=== PATIENT | male | born 1930 | race Caucasian/White ===

== ENCOUNTER 2016-09-17 23:11 | Inpatient (IN) | payer MEDICARE, BC ==
--- NOTE | ~2016-09-17 | HP ---
History And Physical [place] [id number] [facility] [place]. [address] NAME: CHETAN BURK : 32 STATUS : REG ER PAT#: [id number] AGE: 86 ADM/REG DATE : 09/17/16 MR#: [id number] REPORT SERV DATE: 09/18/16 DICTATED BY: NICK RAMOS DATE: 09/18/16 REPORT STATUS : Draft TRANSCRIBED BY: MODL DATE: 09/18/16 DATE OF ADMISSION: 09/17/2016 CHIEF COMPLAINT: Elevated blood pressures and wheezing. HISTORY OF PRESENT ILLNESS: This is an 86-year-old gentleman with history of hypertension and CVA presenting with wheezing and elevated blood pressures. The patient apparently started having some wheezes since about a week ago that progressively worsened over time. The patient really did not have any fevers or chills but he did have cough that was nonproductive. Today, the patient's wheezing got so worse that he got quite anxious. Along with that, the patient's blood pressure started running high in the 180s. The family became concerned and brought him to the ER for further evaluation and care. In the ER, the patient was found to be afebrile and hemodynamically stable. The patient was actually able to maintain adequate oxygen saturations on room air. Initial lab evaluation was actually all very benign with normal electrolytes, normal CBC, including normal white blood cell count. The patient's BNP was then found to be elevated at 1511. Chest x-ray, which showed prominent vasculature as well as left lower lobe infiltrates. Internal Medicine consultation was requested for admission of the patient for further evaluation and care. REVIEW OF SYSTEMS: The patient denies any fevers or chills. Also, 14-point review of systems reviewed and negative other than mentioned above. MEDICATIONS: 1. Aspirin 81 mg p.o. daily. 2. Plavix 75 mg p.o. daily. 3. Folic acid 400 mcg p.o. daily. 4. Prevacid 30 mg p.o. daily. 5. Metformin 500 mg p.o. b.i.d. 6. Singulair 10 mg p.o. daily. 7. Hytrin 10 mg p.o. at bedtime. ALLERGIES: NKDA. PAST MEDICAL HISTORY: 1. CVA. 2. Hypertension. 3. Although, the family denies diabetes, the patient is on metformin at home. PAST SURGICAL HISTORY: Bilateral knee replacement. FAMILY HISTORY: Negative. SOCIAL HISTORY: The patient does not smoke, drink alcohol, or use any illicit drugs. The History And Physical [address] [address] NAME: CHETAN BURK : 32 STATUS : REG ER PAT#: [id number] AGE: 86 ADM/REG DATE : 09/17/16 MR#: [id number] REPORT SERV DATE: 09/18/16 DICTATED BY: NICK RAMOS DATE: 09/18/16 REPORT STATUS : Draft TRANSCRIBED BY: DIANE DATE: 09/18/16 patient lives at home with his and the patient's and his daughter is present at bedside here in the ER. PHYSICAL EXAMINATION: VITAL SIGNS: Temperature 98.1, blood pressure 172/102, pulse 84, respiratory rate is 16, and saturating 97% on room air. Constitutional: On physical exam, the patient is alert and oriented x3 with no focal neurologic deficits. GENERAL: The patient is awake, does not appear to be in acute distress, and he is cooperative. NECK: No JVD. No lymphadenopathy. Normal thyroid. CHEST: No midline sternotomy scar and no tenderness to palpation. LUNGS: Clear to auscultation bilaterally with normal respiratory effort on room air. CARDIOVASCULAR: Regular rate and rhythm with no murmurs, rubs, or gallops, and PMI is nondisplaced. ABDOMEN: Soft, nontender, with active bowel sounds and no organomegaly. EXTREMITIES: No edema. Normal distal pulses. No calf tenderness. SKIN: Clean, dry, warm, and intact. LABORATORY DATA: Sodium is 141, potassium 4.2, chloride 103, BUN 19, creatinine 1.16, glucose 118, calcium 8.5, magnesium 2.0. White blood cell count is 6.7, hemoglobin 13.6, platelets 190. INR is 1.1. Troponin is 0.02. BNP is 1511. Urinalysis was negative. Chest x-ray is personally interpreted and it shows bilateral lower lobe infiltrates worse on the right with blunting of the costovertebral angles. It also showed some prominent vasculature. ASSESSMENT: This is an 86-year-old gentleman with history of hypertension and CVA presenting with community-acquired pneumonia with wheezing. 1. Community-acquired pneumonia. 2. Respiratory wheezing. 3. Elevated BNP with some fluid overload. 4. History of cerebrovascular accident. 5. Hypertension. 6. Ywd-rqkohdu-nnrlttotz diabetes type 2. PLAN: My plan is to admit the patient under telemetry monitoring. The patient will be given oxygen support and bronchodilator therapies. The patient will be treated with empiric antibiotics for community-acquired pneumonia as well as some steroids. I will check an echocardiogram and give him a couple doses of Lasix to see if the patient will breathe better. In's and out's will be closely monitored as well as electrolytes and renal function, as the patient is given gentle diuresis. I will also complete an infectious workup with various cultures, procalcitonin level, and urinary antigens for strep and Legionella. Otherwise, for the rest of stable past medical conditions, including hypertension, boz-ldfrkrg-mojtixctl diabetes type 2 et al, I will continue home medications. Standard DVT prophylaxis. The patient is full code at this time. History And Physical [address] [address] NAME: CHETAN BURK : 32 STATUS : REG ER PAT#: [id number] AGE: 86 ADM/REG DATE : 09/17/16 MR#: [id number] REPORT SERV DATE: 09/18/16 DICTATED BY: NICK RAMOS DATE: 09/18/16 REPORT STATUS : Draft TRANSCRIBED BY: DIANE DATE: 09/18/16 Inessa/DIANE Nick Ramos MD / [id number]
--- NOTE | ~2016-09-17 | CN ---
Consultation Report [facility] [address] [place]. [address] NAME: CHETAN BURK : 32 STATUS : ADM IN PAT#: [id number] AGE: 86 ADM/REG DATE : 09/18/16 MR#: [id number] REPORT SERV DATE: 09/20/16 DICTATED BY: IRIS GIRALDO DATE: 09/20/16 REPORT STATUS : Draft TRANSCRIBED BY: MODJerzy DATE: 09/20/16 CARDIOLOGY CONSULT DATE OF CONSULTATION: REFERRING REASON: Heart failure. HISTORY OF PRESENT ILLNESS: This is a pleasant 86-year-old white gentleman with severe underlying dementia and hearing loss who has been admitted to hospitalist Service several days ago with wheezing and general failure to thrive. His blood pressure according to his family members has been elevated up to 180. He denies any chest pain. Information is being obtained from his daughter and his brother who were in the room while the patient is oriented only to person. He reportedly has been walking without any support but over the last couple of months, he has been sedentary or in the bed. He suffered CVA 14 years ago and has underlying diabetes and hypertension but no previously known coronary artery disease. On admission, he had some bilateral lower lungs infiltrates, worse on the right than on the left with some mild interstitial edema, elevated brain natriuretic peptide to 1500 but negative enzymes. He remained in normal sinus rhythm. Echocardiogram was performed yesterday which was interpreted by my colleague, Dr. Coffman which revealed mild LV enlargement with global hypokinesis EF 30% and I personally reviewed the echocardiogram which did reveal also apical akinesis and aortic valve sclerosis. The patient has been diuresing well over the last couple of days. When I approached him about possible coronary arteriogram, he does not comprehend the situation and is convinced that he is at [facility]. He denied any recent chest pain. He is able to lie flat but has some wheezing. Denies any palpitations. The rest of the review of systems negative. PAST MEDICAL HISTORY: 1. Hypertension. 2. History of CVA 14 years ago. 3. Diabetes mellitus. 4. Remote history of knee surgery. 5. Dementia. 6. Hearing loss. ALLERGIES: NO KNOWN DRUG ALLERGIES. SOCIAL HISTORY: The patient has remote history of smoking many years ago. He apparently quit according to his family. He lives with his . Previously walked without any support but he has been mostly sedentary in the bed over the last several months. Denies drinking alcohol or using street drugs. FAMILY HISTORY: Negative for sudden cardiac or premature coronary artery disease in Consultation Report [place] [id number] [place]. [address] NAME: CHETAN BURK : 32 STATUS : ADM IN PAT#: [id number] AGE: 86 ADM/REG DATE : 09/18/16 MR#: [id number] REPORT SERV DATE: 09/20/16 DICTATED BY: IRIS GIRALDO DATE: 09/20/16 REPORT STATUS : Draft TRANSCRIBED BY: DIANE DATE: 09/20/16 the family. HOME MEDICATIONS: Aspirin 81 mg once a day; Plavix 75 mg; folic acid; and Hytrin. In the hospital, he was getting IV Lasix, fluid restriction, and 2.5 mg of lisinopril and was started on metoprolol 25 mg twice a day and Protonix and Seroquel. PHYSICAL EXAMINATION: GENERAL: An elderly gentleman oriented x1, in no acute distress and some upper respiratory wheeze. VITAL SIGNS: Blood pressure 175/93, heart rate 59 and regular. HEENT: Pupils reactive to light and accommodation. Moist mucous membranes. NECK: No JVD. Normal carotid upstroke. No carotid bruits. LUNGS: Decreased breath sounds bibasilarly, but no crackles. Occasional wheezing. COR: Normal S1, S2. No S3 or S4. No significant rub or murmurs. ABDOMEN: Distended. Nontender. EXTREMITIES: Lower extremity, trace edema around the ankle with decreased pedal pulses bilaterally. SKIN: Warm with normal turgor. MUSCULOSKELETAL: No kyphosis. NEUROLOGIC/PSYCHIATRIC: Alert and oriented. Nonfocal. DATA: Remarkable for electrolyte within normal limits. Brain natriuretic peptide up to 1511. Glucose 150. Chest x-ray as above. Troponin x2 negative. Electrocardiogram normal sinus rhythm, 92 beats per minute, signs of LVH, poor R-wave progression anterior leads, and nonspecific ST-segment changes. An echocardiogram as above. ASSESSMENT AND PLAN: 1. Heart failure exacerbation. 2. Cardiomyopathy of unclear etiology. 3. Remote history of CVA. 4. Dementia. 5. Possible pneumonia. The patient has acute on chronic heart failure exacerbation. Based on the appearance of the echocardiogram, there has been a longstanding heart failure which was probably unrecognized previously. He will need to be on strict fluid restriction and continue to diurese. We will switch to carvedilol from metoprolol. I tried to talk to his over the phone but she is undecided about coronary arteriogram. We will continue to diurese him for the next couple of days and reassess. We will treat him medically for now and consider coronary arteriogram later. ALLEN/DIANE Iris James Consultation Report [address] [place]. [address] NAME: CHETAN BURK : 32 STATUS : ADM IN PAT#: [id number] AGE: 86 ADM/REG DATE : 09/18/16 MR#: [id number] REPORT SERV DATE: 09/20/16 DICTATED BY: IRIS GIRALDO DATE: 09/20/16 REPORT STATUS : Draft TRANSCRIBED BY: DIANE DATE: 09/20/16 Rosy Giraldo / [id number] CC: Rosy Taveras
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
--- NOTE | ~2016-09-17 | EEG ---
Electroencephalogram [facility] [address] [facility] [place]. [address] NAME: CHETAN BURK : 32 STATUS : ADM IN PAT#: [id number] AGE: 86 ADM/REG DATE : 09/18/16 MR#: [id number] REPORT SERV DATE: 09/22/16 DICTATED BY: DATE: REPORT STATUS : Draft TRANSCRIBED BY: MODL DATE: 09/22/16 NEUROLOGY EEG REPORT CLINICAL INDICATION: Encephalopathy. DISCUSSION: This EEG was performed using 10/20 electrode placement system. During the EEG study, symmetric background activity was noted with predominant occipital rhythm of roughly 7 to 8 hertz. Photic stimulation was performed with appropriate driving response. Hyperventilation was not performed secondary to the patient's underlying medical condition and mental status. During the EEG study, the patient achieved drowsy state. No focal abnormalities, seizure activity, or seizure discharge was otherwise noted. INTERPRETATION: This EEG study obtained during awake and drowsy state may be considered within normal limits. No focal abnormalities, seizure activity, or seizure discharge was seen. Clinical correlation is recommended. [facility]/MODJerzy Kevin Nicole MD / [id number] CC: Rosy Taveras
--- NOTE | ~2016-09-17 | CN ---
Consultation Report [facility] [address] [place]. [address] NAME: CHETAN RYAN : 34 STATUS : ADM IN PAT#: [id number] AGE: 86 ADM/REG DATE : 09/18/16 MR#: [id number] REPORT SERV DATE: 09/23/16 DICTATED BY: JEFFREY DUNCAN DATE: 09/23/16 REPORT STATUS : Draft TRANSCRIBED BY: MODL DATE: 09/23/16 NEPHROLOGY CONSULT DATE OF CONSULTATION: 09/23/2016 REASON FOR CONSULT: Acute kidney injury. HISTORY OF PRESENT ILLNESS: Mr. Ryan is an 86-year-old, white male who likely has some degree of chronic kidney disease with a creatinine of 1.2 on presentation, 09/17/2016. He has had extensive workup here during this admission. CT scan originally showed atrophy without acute changes, but an MRI confirmed a right posterior temporal lobe stroke. He was found to have a left internal carotid artery stenosis during the workup and Vascular consult is pending. He has been seen by Cardiology and echo showed an EF of 30% with a PASP of 38 mmHg. He was placed on Lasix 40 mg a day on 09/21/2016 and Prinivil 5 mg a day on 09/22/2016. Creatinine, which was 1.4 on 09/21/2016 was 1.4 yesterday, but is 1.7 today. Unfortunately, he is unable to give any meaningful history and the family is not in the room at the time of my interview. PAST MEDICAL HISTORY: 1. CKD with creatinine 1.2 on admission. 2. Hypertension. 3. NIDDM, on metformin. 4. History of previous stroke. 5. History of dementia. MEDICATIONS: Aspirin, Lipitor, Coreg, Plavix, vitamin B12, Colace, Aricept, folic acid, Lasix 40 mg daily, subcu heparin, Prinivil 5 mg daily, Singulair, multivitamin, Protonix, MiraLAX, Seroquel, Hytrin, and thiamin. FAMILY HISTORY: Cannot be obtained due to the patient's current condition with dementia. SOCIAL HISTORY: Cannot be obtained due to the patient's current condition with dementia. REVIEW OF SYSTEMS: Cannot be obtained due to the patient's current condition with dementia. PHYSICAL EXAMINATION: VITAL SIGNS: Temperature 97, pulse 81, respirations 16, blood pressure 100/59, 93% sat on room air. 740 mL of intake with 550 mL of urine output recorded. GENERALLY: He is an elderly, chronically ill-appearing white male, who is in no distress, lying flat in his hospital bed. Awakens easily. He is unable to give any details regarding his history. He is confused and not oriented. HEENT: Sclerae without icterus. Conjunctivae, not injected. Oropharynx is clear. Mucous membranes are dry. No JVD. He has a bruise to the right orbital area, but is normocephalic Consultation Report [facility] [address] [place]. [address] NAME: CHETAN RYAN : 34 STATUS : ADM IN [facility]#: [id number] AGE: 86 ADM/REG DATE : 09/18/16 MR#: [id number] REPORT SERV DATE: 09/23/16 DICTATED BY: JEFFREY DUNCAN DATE: 09/23/16 REPORT STATUS : Draft TRANSCRIBED BY: MODL DATE: 09/23/16 and atraumatic. Pupils are equal. Gaze is conjugate. LUNGS: He has bilateral rhonchi without dyspnea or tachypnea on room air. HEART: Regular rate and rhythm. 2/6 murmur. No rub. ABDOMEN: Thin, soft, nontender, nondistended. Bowel sounds present throughout. No rebound guarding or peritoneal signs. EXTREMITIES: Show no edema. SKIN: Exam shows no rash. He has no Espinoza catheter. : Deferred. LABORATORY DATA: Sodium 140, potassium 4.2, bicarb 28, BUN 37, creatinine 1.7, GFR 36 mL/minute, calcium 9, magnesium 2.7. A1c 6.7%, white count 7.7, hemoglobin 15.3, platelets 207,000. ASSESSMENT/PLAN: Mr. Ryan has chronic kidney disease with baseline creatinine 1.2 on admission, now with nonoliguric acute kidney injury, dementia, [id number] diabetes mellitus, stroke, and hypotension. More than likely, his acute kidney injury is related to renal hypoperfusion in combination from relative hypotension and medication effect. We will stop the MAVERICK and Lasix as he appears euvolemic on exam. Check bladder scan. Gently hydrate with normal saline x5 100 mL keeping a close watch on his volume status with his depressed EF. Continue supportive care. Watch labs. Update family when they are available. Should renal function worsen, I would not consider him to be a dialysis candidate with his multiple comorbid illnesses. Please avoid contrast if at all possible. We will follow closely with you. Appreciate consult. ERICKSON/MODL Jeffrey Duncan M.D. / [id number] CC: Rosy Taveras Ricky G
--- NOTE | ~2016-09-17 | DS ---
Discharge Summary [facility] [address] [place]. [address] NAME: CHETAN BURK : 34 STATUS : DIS IN PAT#: [id number] AGE: 86 ADM/REG DATE : 09/18/16 MR#: [id number] REPORT SERV DATE: 09/27/16 DICTATED BY: CODI DOMÍNGUEZ DATE: 09/26/16 REPORT STATUS : Draft TRANSCRIBED BY: MODL DATE: 09/26/16 ADMISSION DATE: 09/18/2016 DISCHARGE DATE: 09/26/2016 DIAGNOSES OF DISCHARGE: 1. 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 2. Delirium with dementia, resolved with underlying dementia, likely vascular. 3. Acute right subcortical cerebrovascular accident. 4. Hyperlipidemia. 5. Dysphagia. 6. Acute on chronic kidney disease with stable creatinine at discharge. 7. Hypertension. 8. Vitamin B12 deficiency. 9. Weakness, debility with recurrent falls. CONSULTANTS ON THE CASE: Dr. Nicole, Neurology; Dr. Garcia, Renal; Dr. Lott, Cardiology; as well as Dr. Byron Barnes, Vascular. PROCEDURES DONE DURING THIS HOSPITALIZATION: None. TESTS DONE DURING THIS HOSPITALIZATION: Include: 1. 2D echo that has been performed on 09/19/2016 showing decreased ejection fraction around 30% with dilated LV and global hypocontractility. 2. The patient underwent CT of the brain without contrast performed on 09/20/2016 showing no acute abnormalities. There were moderate cortical volume loss and findings compatible with advanced chronic deep white matter ischemic changes and also an old area of infarction involving the high medial left frontal lobe. There was a questionable 5-mm peripheral calcified structure along the anteromedial aspect of the left temporal lobe that required farther delineation with an MRI. The patient underwent an MRI of the brain and MRA of the head. 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 HOSPITAL COURSE: The patient underwent also a carotid ultrasound that has shown that the patient has category 3 disease involving the left internal carotid artery and 1 involving the right internal carotid artery and the vertebral arteries were patent. Chest x-ray, portable, on admission, 09/17/2016, showed pulmonary venous congestion and edema with pleural effusion. Followup chest x-ray significantly showed almost complete clearing of the failure with resolved pleural effusion. Swallow study showed delayed and weak pharyngeal contraction leading to some aspiration of the delayed cough. The modified swallow study report for the diet consistency recommendation has been done by speech pathologist. This is an 86 years old gentleman, who has been admitted by Dr. Nick Ramos on 09/18/2016 with Discharge Summary [facility] [address] [place]. [address] NAME: CHETAN BURK : 32 STATUS : DIS IN PAT#: [id number] AGE: 86 ADM/REG DATE : 09/18/16 MR#: [id number] REPORT SERV DATE: 09/27/16 DICTATED BY: CODI DOMÍNGUEZ DATE: 09/26/16 REPORT STATUS : Draft TRANSCRIBED BY: DIANE DATE: 09/26/16 elevated blood pressure and wheezing. The patient has been having a history of hypertension, prior history of stroke, diabetes, as well as some prior history of dementia, who has been brought by the family on 09/18/2016 with increasing shortness of breath, wheezing, and hypertension. Initially, the patient was thought to have had pneumonia. However, upon further evaluation, he has been diagnosed with new onset of congestive heart failure. It is important to note that the patient had interstitial edema, ejection fraction, which showed global hypokinesis about 30%. The patient has been also significantly agitated and delirious on admission. He does have a history of dementia according to the family and prior history of stroke, but he has not been that delirious and agitated according to them prior to current admission. The patient was noted to be acutely confused, agitated, and combative. CT of the brain did not show any acute events, but an MRI of the brain did show small acute right subcortical CVA. It is important to note that he has been seen in consult by Dr. Nicole from Neurology Service. The patient did have full neurologic workup including EEG, which did not show any seizure activity. He has been started on Aricept as well as p.r.n. Seroquel and his delirium improved significantly and resolved, although his dementia likely vascular in origin has been fairly severe. The patient, as I said, has been seen in consult by Dr. Lott with his new-onset CHF, most likely nonischemic cardiomyopathy. Dr. Lott had a long discussion with the patient's due to the fact that the patient has had significant delirium as well as dementia and after discussion with the patient's and lack of complaint of chest pain or increasing shortness of breath and also improvement and resolution of his CHF, the patient's library sales consultant Dr. Lott concluded that the patient is not a candidate for cardiac catheterization and medical management has been discussed with the with no plans for cardiac cath. The patient has been diuresed. He developed some mild acute kidney injury, for which the patient has been seen in consult by Dr. Garcia from the Renal Service, likely his acute kidney injury has been related to aggressive diuretics as well as some MAVERICK. His MAVERICK as well as his Lasix have been discontinued and he has provided gentle hydration with stabilization of his kidney function. As a part of the neurologic workup, the patient underwent a carotid ultrasound, which did show grade 3 carotid stenoses on the left. He has been evaluated by Dr. Byron Barnes from Vascular Service, who did not consider the patient to be a good candidate for cardiac endarterectomy at the current time and plans to follow up with the patient in the office as an outpatient. On 09/24/2016, the patient has been ready to be discharged to inpatient rehab. His encephalopathy resolved and his dementia remained stable on Aricept and p.r.n. Seroquel and for his CVA, we will continue him on statin, aspirin, and Plavix. Regarding his cardiomyopathy, the patient would require only p.r.n. diuretics as needed, currently is stable and compensated, and he would not tolerate MAVERICK at the current time due to his renal failure, so his MAVERICK has been discontinued. Again, on 09/24/2016, the patient has been ready for discharge to inpatient rehab at [facility] facility. MEDICATIONS AT DISCHARGE: Include aspirin 81 p.o. daily, Lipitor 80 mg at bedtime, Coreg 3.125 p.o. b.i.d., Plavix 75 p.o. daily, vitamin B12 at 1000 p.o. daily, Colace 100 p.o. b.i.d., Aricept 5 mg at bedtime, folic acid 400 mcg p.o. daily, NovoLog sliding scale insulin, Singulair 10 mg p.o. daily, multivitamin one tablet p.o. daily, Protonix 40 mg p.o. daily, MiraLAX one packet p.o. daily, Hytrin 10 mg at bedtime, thiamine 100 p.o. daily, Tylenol p.r.n., Seroquel p.r.n., nebulizers p.r.n. Discharge Summary [address] [address] NAME: CHETAN BURK : 34 STATUS : DIS IN PAT#: [id number] AGE: 86 ADM/REG DATE : 09/18/16 MR#: [id number] REPORT SERV DATE: 09/27/16 DICTATED BY: CODI DOMÍNGUEZ DATE: 09/26/16 REPORT STATUS : Draft TRANSCRIBED BY: DIANE DATE: 09/26/16 FOLLOWUP: The patient has been advised to follow up with his primary care provider, Ernesto Jimenez, in one week after discharge; Cardiology followup with Dr. Lott from in three to four weeks after discharge. We will arrange outpatient followup with Dr. Garcia, Nephrology, in three to four weeks after discharge. Neurology follow up with [facility] for his history of dementia in four to six weeks after discharge and followup appointment with Dr. Barnes from Vascular Service in six weeks after discharge. That has been discussed extensively with the patient's family. All the questions have been answered in full. I have spent more than 30 minutes at discharging the patient, Connor Erich Altamirano; medication reconciliation; discharge summary; discharge instructions; written prescriptions as well. CLAUDIA/DIANE Codi Domínguez M.D. / [id number] CC: Rosy Taveras
[2016-09-17 23:20] LABS: BASOPHILS 0.3 %; BASOPHILS ABSOLUTE 0.02 10/3/uL (0.0-0.16); EOSINOPHILS 1.8 %; EOSINOPHILS ABSOLUTE 0.12 10/3/uL (0.0-0.53); ER CBC TAT 0 Hrs 07 Mins; HEMATOCRIT 39.7 % (40.0-51.0); HEMOGLOBIN 13.6 g/dL (13.6-17.8); IMMATURE GRANULOCYTES 0.5 %; IMMATURE GRANULOCYTES ABSOLUTE 0.03 10/3/uL (0.0-0.11); LYMPHOCYTES 11.9 %; LYMPHOCYTES ABSOLUTE 0.79 10/3/uL (0.67-4.30); MANUAL DIFF NO %; MEAN CORPUS HGB CONC 34.3 g/dL (32.0-36.0); MEAN CORPUSCULAR HEMOGLOB 31.9 pg (26.0-34.0); MEAN CORPUSCULAR VOLUME 93.2 fL (80-100); MEAN PLATELET VOLUME 11.7 fL (9.2-13.0); MONOCYTES 7.7 %; MONOCYTES ABSOLUTE 0.51 10/3/uL (0.21-1.20); NEUTROPHILS 77.8 %; NEUTROPHILS ABSOLUTE 5.19 10/3/uL (2.02-8.40); PLATELET COUNT 190 10/3/uL (150-400); RBC DISTRIBUTION WIDTH 13.4 % (12.0-16.0); RED CELL COUNT 4.26 10/6/uL (4.7-6.1); WHITE BLOOD CELLS 6.7 10/3/uL (4.5-10.5)
[2016-09-17 23:27] LABS: INTERNATIONAL NORMAL RATI 1.1 UNITS (-); PARTIAL THROMBO TIME 31.6 SEC (22.5-37.2); PROTIME (NOT ORD) 14.1 SEC (12.0-14.5)
[2016-09-17 23:35] LABS: BUN (BLOOD UREA NITROGEN) 19 MG/DL (6-23); CALCIUM, SERUM 8.5 MG/DL (8.5-10.4); CHEST PAIN PROFILE TAT 0 Hrs 22 Mins; CHLORIDE, SERUM 103 MMOL/L (96-112); CO2 (CARBON DIOXIDE) 28 MMOL/L (24-34); CREATININE 1.16 MG/DL (0.70-1.30); GFR AFRICAN AMERICAN 67 ML/MIN (>=60); GFR NON AFRICAN AMERICAN 58 ML/MIN (>=60); GLUCOSE, SERUM 118 MG/DL (60-99); POTASSIUM, SERUM 4.2 MMOL/L (3.5-5.3); SODIUM, SERUM 141 MMOL/L (135-148); TROPONIN I 0.02 NG/ML (<0.05)
[2016-09-18 01:05] LABS: ASCORBIC ACID (UR NOT ORDER) NEG (NEG); BILIRUBIN, URINE NEGATIVE (NEG); KETONE, URINE NEGATIVE (NEG); LEUKOCYTE ESTERASE(NOT OR NEG (NEG); NITRITE (URINE) NEG (NEG); WBC (NOT ORDERED) (RFLEX) < 1 (0-5)
[2016-09-18] MEDS ORDERED: SINGULAIR1 PO (01:13)
[2016-09-18] MEDS ORDERED: ASAB PO (01:14)
[2016-09-18] MEDS ORDERED: HYTRIN10 MG PO (01:14)
[2016-09-18] MEDS ORDERED: GLUCPH PO (01:15)
[2016-09-18] MEDS ORDERED: PREV30 PO (01:16)
[2016-09-18] MEDS ORDERED: FOLIC ACID400 MC1 PO (01:16)
[2016-09-18] MEDS ORDERED: PLAVIX PO (01:16)
[2016-09-18 03:31] LABS: PROCALCITONIN <0.05 ng/mL (<0.5)
[2016-09-18 09:57] LABS: TROPONIN I <0.02 NG/ML (<0.05)
[2016-09-18 10:18] LABS: PROCALCITONIN <0.05 ng/mL (<0.5)
[2016-09-18 15:00] LABS: A/G RATIO 0.9 (0.7-1.9); ALBUMIN 3.7 G/DL (3.5-5.0); ALKALINE PHOSPHATASE 112 U/L (45-117); BUN (BLOOD UREA NITROGEN) 19 MG/DL (6-23); CALCIUM, SERUM 8.7 MG/DL (8.5-10.4); CHLORIDE, SERUM 102 MMOL/L (96-112); CO2 (CARBON DIOXIDE) 24 MMOL/L (24-34); CREATININE 1.36 MG/DL (0.70-1.30); GFR AFRICAN AMERICAN 55 ML/MIN (>=60); GFR NON AFRICAN AMERICAN 47 ML/MIN (>=60); GLOBULIN 4.2 G/DL (2.5-4.1); POTASSIUM, SERUM 4.1 MMOL/L (3.5-5.3); SGOT(AST) 17 U/L (5-40); SGPT(ALT) 19 U/L (5-65); SODIUM, SERUM 138 MMOL/L (135-148); TOTAL BILIRUBIN 0.7 MG/DL (0-1.2); TOTAL PROTEIN 7.9 G/DL (6.0-8.5); TROPONIN I <0.02 NG/ML (<0.05)
[2016-09-18 15:02] LABS: GLUCOSE, SERUM 199 MG/DL (60-99)
[2016-09-19 06:02] LABS: BASOPHILS 0 %; EOSINOPHILS 0 %; HEMATOCRIT 43.1 % (40.0-51.0); HEMOGLOBIN 14.9 g/dL (13.6-17.8); IMMATURE GRANULOCYTES 0.2 %; IMMATURE GRANULOCYTES ABSOLUTE 0.02 10/3/uL (0.0-0.11); LYMPHOCYTES 4.4 %; LYMPHOCYTES ABSOLUTE 0.43 10/3/uL (0.67-4.30); MEAN CORPUS HGB CONC 34.6 g/dL (32.0-36.0); MEAN CORPUSCULAR HEMOGLOB 31.5 pg (26.0-34.0); MEAN CORPUSCULAR VOLUME 91.1 fL (80-100); MEAN PLATELET VOLUME 12.2 fL (9.2-13.0); MONOCYTES ABSOLUTE 0.69 10/3/uL (0.21-1.20); NEUTROPHILS 88.4 %; NEUTROPHILS ABSOLUTE 8.71 10/3/uL (2.02-8.40); PLATELET COUNT 210 10/3/uL (150-400); RBC DISTRIBUTION WIDTH 13.2 % (12.0-16.0); RED CELL COUNT 4.73 10/6/uL (4.7-6.1)
[2016-09-19 06:04] LABS: MANUAL DIFF NO %; WHITE BLOOD CELLS 9.9 10/3/uL (4.5-10.5)
[2016-09-19 06:15] LABS: CALCIUM, SERUM 9.1 MG/DL (8.5-10.4); CHLORIDE, SERUM 99 MMOL/L (96-112); CO2 (CARBON DIOXIDE) 24 MMOL/L (24-34); CREATININE 1.49 MG/DL (0.70-1.30); GFR AFRICAN AMERICAN 49 ML/MIN (>=60); GFR NON AFRICAN AMERICAN 42 ML/MIN (>=60); POTASSIUM, SERUM 3.9 MMOL/L (3.5-5.3); SODIUM, SERUM 137 MMOL/L (135-148)
[2016-09-19 06:17] LABS: BUN (BLOOD UREA NITROGEN) 28 MG/DL (6-23); GLUCOSE, SERUM 150 MG/DL (60-99)
[2016-09-20 05:34] LABS: CALCIUM, SERUM 8.7 MG/DL (8.5-10.4); CHLORIDE, SERUM 103 MMOL/L (96-112); CO2 (CARBON DIOXIDE) 27 MMOL/L (24-34); CREATININE 1.38 MG/DL (0.70-1.30); GFR AFRICAN AMERICAN 54 ML/MIN (>=60); GFR NON AFRICAN AMERICAN 47 ML/MIN (>=60); POTASSIUM, SERUM 3.8 MMOL/L (3.5-5.3); SODIUM, SERUM 141 MMOL/L (135-148)
[2016-09-20 05:35] LABS: BUN (BLOOD UREA NITROGEN) 38 MG/DL (6-23); GLUCOSE, SERUM 100 MG/DL (60-99)
[2016-09-20 12:17] LABS: FOLATE 26.9 NG/ML (>5.2)
[2016-09-20 20:39] LABS: ASCORBIC ACID (UR NOT ORDER) NEG (NEG); BILIRUBIN, URINE NEGATIVE (NEG); KETONE, URINE NEGATIVE (NEG); LEUKOCYTE ESTERASE(NOT OR NEG (NEG); WBC (NOT ORDERED) (RFLEX) < 1 (0-5)
[2016-09-21 04:54] LABS: HEMOGLOBIN 14.8 g/dL (13.6-17.8); MEAN CORPUS HGB CONC 33.6 g/dL (32.0-36.0); MEAN CORPUSCULAR HEMOGLOB 30.6 pg (26.0-34.0); MEAN CORPUSCULAR VOLUME 90.9 fL (80-100); MEAN PLATELET VOLUME 13.2 fL (9.2-13.0); PLATELET COUNT 147 10/3/uL (150-400); RBC DISTRIBUTION WIDTH 13.5 % (12.0-16.0); RED CELL COUNT 4.84 10/6/uL (4.7-6.1); WHITE BLOOD CELLS 7.2 10/3/uL (4.5-10.5)
[2016-09-21 04:56] LABS: MANUAL DIFF YES %
[2016-09-21 05:07] LABS: BUN (BLOOD UREA NITROGEN) 39 MG/DL (6-23); CALCIUM, SERUM 8.5 MG/DL (8.5-10.4); CHLORIDE, SERUM 100 MMOL/L (96-112); CO2 (CARBON DIOXIDE) 23 MMOL/L (24-34); CREATININE 1.41 MG/DL (0.70-1.30); FREE T4 1.29 NG/DL (0.76-1.46); GFR AFRICAN AMERICAN 53 ML/MIN (>=60); GFR NON AFRICAN AMERICAN 45 ML/MIN (>=60); GLUCOSE, SERUM 96 MG/DL (60-99); POTASSIUM, SERUM 4.4 MMOL/L (3.5-5.3); SODIUM, SERUM 138 MMOL/L (135-148)
[2016-09-21 05:19] LABS: B NATRIURETIC PEPTIDE (BNP) 705.9 PG/ML (< 100.0)
[2016-09-21 05:31] LABS: BAND NEUTROPHILS 1 %; BASOPHILS 3 %; BASOPHILS ABSOLUTE (CALC) 0.22 10/3/uL (0.0-0.16); LYMPHOCYTES 16 %; LYMPHOCYTES ABSOLUTE (CALC) 1.15 10/3/uL (0.67-4.30); MONOCYTES 4 %; MONOCYTES ABSOLUTE (CALC) 0.29 10/3/uL (0.21-1.20); NEUTROPHILS ABSOLUTE (CALC) 5.54 10/3/uL (2.02-8.40); PLATELET ESTIMATE ADQ (ADEQUATE); RBC MORPHOLOGY NORM (NORMAL); SEGMENTED NEUTROPHIL (0) 76 %; TOTAL NUCLEATED CELLS 100
[2016-09-22 05:12] LABS: BASOPHILS 0.6 %; BASOPHILS ABSOLUTE 0.04 10/3/uL (0.0-0.16); EOSINOPHILS 5.3 %; EOSINOPHILS ABSOLUTE 0.37 10/3/uL (0.0-0.53); HEMATOCRIT 45.3 % (40.0-51.0); IMMATURE GRANULOCYTES 0.3 %; IMMATURE GRANULOCYTES ABSOLUTE 0.02 10/3/uL (0.0-0.11); LYMPHOCYTES 18.5 %; MEAN CORPUSCULAR HEMOGLOB 32.2 pg (26.0-34.0); MEAN CORPUSCULAR VOLUME 91.1 fL (80-100); MEAN PLATELET VOLUME 11.9 fL (9.2-13.0); MONOCYTES 8.1 %; MONOCYTES ABSOLUTE 0.57 10/3/uL (0.21-1.20); NEUTROPHILS 67.2 %; NEUTROPHILS ABSOLUTE 4.74 10/3/uL (2.02-8.40); RBC DISTRIBUTION WIDTH 13.2 % (12.0-16.0); RED CELL COUNT 4.97 10/6/uL (4.7-6.1)
[2016-09-22 05:13] LABS: MANUAL DIFF NO %; MEAN CORPUS HGB CONC 35.3 g/dL (32.0-36.0); PLATELET COUNT 204 10/3/uL (150-400)
[2016-09-22 05:29] LABS: BUN (BLOOD UREA NITROGEN) 37 MG/DL (6-23); C-REACTIVE PROTEIN 9.5 MG/L (<8.0); CALCIUM, SERUM 8.5 MG/DL (8.5-10.4); CHLORIDE, SERUM 101 MMOL/L (96-112); CO2 (CARBON DIOXIDE) 25 MMOL/L (24-34); CREATININE 1.37 MG/DL (0.70-1.30); GFR AFRICAN AMERICAN 55 ML/MIN (>=60); GFR NON AFRICAN AMERICAN 47 ML/MIN (>=60); GLUCOSE, SERUM 113 MG/DL (60-99); POTASSIUM, SERUM 4.1 MMOL/L (3.5-5.3); SODIUM, SERUM 137 MMOL/L (135-148)
[2016-09-22 06:19] LABS: SED RATE 8 MM/HR (0-15)
[2016-09-23 07:06] LABS: BASOPHILS 0.3 %; BASOPHILS ABSOLUTE 0.02 10/3/uL (0.0-0.16); EOSINOPHILS 4.4 %; EOSINOPHILS ABSOLUTE 0.34 10/3/uL (0.0-0.53); HEMATOCRIT 44.8 % (40.0-51.0); HEMOGLOBIN 15.3 g/dL (13.6-17.8); IMMATURE GRANULOCYTES 0.1 %; IMMATURE GRANULOCYTES ABSOLUTE 0.01 10/3/uL (0.0-0.11); LYMPHOCYTES 14.1 %; LYMPHOCYTES ABSOLUTE 1.09 10/3/uL (0.67-4.30); MEAN CORPUS HGB CONC 34.2 g/dL (32.0-36.0); MEAN CORPUSCULAR HEMOGLOB 31.2 pg (26.0-34.0); MEAN CORPUSCULAR VOLUME 91.2 fL (80-100); MEAN PLATELET VOLUME 12.1 fL (9.2-13.0); MONOCYTES 8.9 %; MONOCYTES ABSOLUTE 0.69 10/3/uL (0.21-1.20); NEUTROPHILS 72.2 %; NEUTROPHILS ABSOLUTE 5.58 10/3/uL (2.02-8.40); PLATELET COUNT 207 10/3/uL (150-400); RBC DISTRIBUTION WIDTH 13.1 % (12.0-16.0); RED CELL COUNT 4.91 10/6/uL (4.7-6.1); WHITE BLOOD CELLS 7.7 10/3/uL (4.5-10.5)
[2016-09-23 07:11] LABS: MANUAL DIFF NO %
[2016-09-23 07:19] LABS: BUN (BLOOD UREA NITROGEN) 37 MG/DL (6-23); CHLORIDE, SERUM 101 MMOL/L (96-112); CHOL/HDL RATIO(NOT ORDER) 3.3 (0-5); CHOLESTEROL 145 MG/DL (< 200); CO2 (CARBON DIOXIDE) 28 MMOL/L (24-34); CREATININE 1.71 MG/DL (0.70-1.30); GFR AFRICAN AMERICAN 42 ML/MIN (>=60); GFR NON AFRICAN AMERICAN 36 ML/MIN (>=60); GLUCOSE, SERUM 119 MG/DL (60-99); HDL CHOLESTEROL 44 MG/DL (> 39); LDL CHOLESTEROL 71 MG/DL (< 130); NON-HDL CHOLESTEROL 101 MG/DL (< 160); POTASSIUM, SERUM 4.2 MMOL/L (3.5-5.3); SODIUM, SERUM 140 MMOL/L (135-148); TRIGLYCERIDE 152 MG/DL (< 150)
[2016-09-24 07:43] LABS: BASOPHILS 0.4 %; BASOPHILS ABSOLUTE 0.03 10/3/uL (0.0-0.16); EOSINOPHILS 5.7 %; EOSINOPHILS ABSOLUTE 0.43 10/3/uL (0.0-0.53); HEMATOCRIT 46.1 % (40.0-51.0); HEMOGLOBIN 16.1 g/dL (13.6-17.8); IMMATURE GRANULOCYTES 0.1 %; IMMATURE GRANULOCYTES ABSOLUTE 0.01 10/3/uL (0.0-0.11); LYMPHOCYTES 15.8 %; LYMPHOCYTES ABSOLUTE 1.19 10/3/uL (0.67-4.30); MEAN CORPUS HGB CONC 34.9 g/dL (32.0-36.0); MEAN CORPUSCULAR HEMOGLOB 31.4 pg (26.0-34.0); MEAN PLATELET VOLUME 12.1 fL (9.2-13.0); MONOCYTES 8.8 %; MONOCYTES ABSOLUTE 0.66 10/3/uL (0.21-1.20); NEUTROPHILS 69.2 %; NEUTROPHILS ABSOLUTE 5.21 10/3/uL (2.02-8.40); PLATELET COUNT 199 10/3/uL (150-400); RBC DISTRIBUTION WIDTH 13.2 % (12.0-16.0); RED CELL COUNT 5.12 10/6/uL (4.7-6.1); WHITE BLOOD CELLS 7.5 10/3/uL (4.5-10.5)
[2016-09-24 07:44] LABS: MANUAL DIFF NO %
[2016-09-24 07:58] LABS: ALBUMIN 3.5 G/DL (3.5-5.0); CALCIUM, SERUM 8.6 MG/DL (8.5-10.4); CHLORIDE, SERUM 102 MMOL/L (96-112); CO2 (CARBON DIOXIDE) 24 MMOL/L (24-34); CREATININE 1.67 MG/DL (0.70-1.30); GFR AFRICAN AMERICAN 43 ML/MIN (>=60); GFR NON AFRICAN AMERICAN 37 ML/MIN (>=60); GLUCOSE, SERUM 103 MG/DL (60-99); PHOSPHORUS, SERUM 2.9 MG/DL (2.5-4.5); POTASSIUM, SERUM 4.4 MMOL/L (3.5-5.3); SODIUM, SERUM 138 MMOL/L (135-148)
[2016-09-24 07:59] LABS: BUN (BLOOD UREA NITROGEN) 44 MG/DL (6-23)
[2016-09-25 07:45] LABS: BASOPHILS 0.3 %; BASOPHILS ABSOLUTE 0.02 10/3/uL (0.0-0.16); EOSINOPHILS 4.8 %; EOSINOPHILS ABSOLUTE 0.37 10/3/uL (0.0-0.53); HEMOGLOBIN 14.8 g/dL (13.6-17.8); IMMATURE GRANULOCYTES 0.1 %; IMMATURE GRANULOCYTES ABSOLUTE 0.01 10/3/uL (0.0-0.11); LYMPHOCYTES 13.4 %; LYMPHOCYTES ABSOLUTE 1.04 10/3/uL (0.67-4.30); MEAN CORPUS HGB CONC 34.4 g/dL (32.0-36.0); MEAN CORPUSCULAR HEMOGLOB 30.9 pg (26.0-34.0); MEAN CORPUSCULAR VOLUME 89.8 fL (80-100); MEAN PLATELET VOLUME 12.1 fL (9.2-13.0); MONOCYTES 11.2 %; MONOCYTES ABSOLUTE 0.87 10/3/uL (0.21-1.20); NEUTROPHILS 70.2 %; NEUTROPHILS ABSOLUTE 5.46 10/3/uL (2.02-8.40); PLATELET COUNT 207 10/3/uL (150-400); RBC DISTRIBUTION WIDTH 13.4 % (12.0-16.0); RED CELL COUNT 4.79 10/6/uL (4.7-6.1); WHITE BLOOD CELLS 7.8 10/3/uL (4.5-10.5)
[2016-09-25 07:46] LABS: MANUAL DIFF NO %
[2016-09-25 07:54] LABS: CALCIUM, SERUM 8.4 MG/DL (8.5-10.4); CHLORIDE, SERUM 104 MMOL/L (96-112); CO2 (CARBON DIOXIDE) 22 MMOL/L (24-34); CREATININE 1.48 MG/DL (0.70-1.30); GFR AFRICAN AMERICAN 50 ML/MIN (>=60); GFR NON AFRICAN AMERICAN 43 ML/MIN (>=60); GLUCOSE, SERUM 111 MG/DL (60-99); POTASSIUM, SERUM 4.7 MMOL/L (3.5-5.3); SODIUM, SERUM 136 MMOL/L (135-148)
[2016-09-25 07:55] LABS: BUN (BLOOD UREA NITROGEN) 40 MG/DL (6-23)
[2016-09-25 14:43] LABS: POTASSIUM, SERUM 4.9 MMOL/L (3.5-5.3)
[2016-09-26 04:49] LABS: BASOPHILS 0.3 %; BASOPHILS ABSOLUTE 0.02 10/3/uL (0.0-0.16); EOSINOPHILS 4.3 %; EOSINOPHILS ABSOLUTE 0.34 10/3/uL (0.0-0.53); HEMATOCRIT 43.3 % (40.0-51.0); HEMOGLOBIN 14.9 g/dL (13.6-17.8); IMMATURE GRANULOCYTES 0.3 %; IMMATURE GRANULOCYTES ABSOLUTE 0.02 10/3/uL (0.0-0.11); LYMPHOCYTES 17.3 %; LYMPHOCYTES ABSOLUTE 1.37 10/3/uL (0.67-4.30); MEAN CORPUS HGB CONC 34.4 g/dL (32.0-36.0); MEAN CORPUSCULAR HEMOGLOB 31.1 pg (26.0-34.0); MEAN CORPUSCULAR VOLUME 90.4 fL (80-100); MEAN PLATELET VOLUME 11.8 fL (9.2-13.0); MONOCYTES 10.2 %; MONOCYTES ABSOLUTE 0.81 10/3/uL (0.21-1.20); NEUTROPHILS 67.6 %; NEUTROPHILS ABSOLUTE 5.38 10/3/uL (2.02-8.40); PLATELET COUNT 219 10/3/uL (150-400); RBC DISTRIBUTION WIDTH 13.3 % (12.0-16.0); RED CELL COUNT 4.79 10/6/uL (4.7-6.1); WHITE BLOOD CELLS 7.9 10/3/uL (4.5-10.5)
[2016-09-26 04:50] LABS: MANUAL DIFF NO %
[2016-09-26 05:03] LABS: BUN (BLOOD UREA NITROGEN) 40 MG/DL (6-23); CALCIUM, SERUM 8.8 MG/DL (8.5-10.4); CHLORIDE, SERUM 105 MMOL/L (96-112); CO2 (CARBON DIOXIDE) 23 MMOL/L (24-34); GFR AFRICAN AMERICAN 42 ML/MIN (>=60); GFR NON AFRICAN AMERICAN 36 ML/MIN (>=60); GLUCOSE, SERUM 105 MG/DL (60-99); POTASSIUM, SERUM 4.8 MMOL/L (3.5-5.3); SODIUM, SERUM 138 MMOL/L (135-148)
== END 2016-09-26 15:50 | DRG 291 ==
LOC: ER 23:11 → 5NO 09-18 02:38
PROVIDERS: Emergency Medicine; Internal Medicine; Nurse Practitioner Family; Psychiatry & Neurology Neurology
DX: I13.0 Hypertensive heart and chronic kidney disease with heart failure and stage 1 through stage 4 chronic kidney disease, or unspecified chronic kidney disease (principal); I50.23 Acute on chronic systolic (congestive) heart failure; I63.9 Cerebral infarction, unspecified; N17.9 Acute kidney failure, unspecified; F03.91 Unspecified dementia, unspecified severity, with behavioral disturbance; I69.351 Hemiplegia and hemiparesis following cerebral infarction affecting right dominant side; E11.22 Type 2 diabetes mellitus with diabetic chronic kidney disease; I42.9 Cardiomyopathy, unspecified; E53.8 Deficiency of other specified B group vitamins; Z79.02 Long term (current) use of antithrombotics/antiplatelets; Z79.82 Long term (current) use of aspirin; N18.9 Chronic kidney disease, unspecified; Z91.81 History of falling; I65.22 Occlusion and stenosis of left carotid artery; Z79.84 Long term (current) use of oral hypoglycemic drugs
CPT/HCPCS: 70450; 70544; 70551; 71010; 74230; 80048; 80053; 80061; 80069; 81001; 82140; 82607; 82746; 82962; 83036; 83735; 83880; 84132; 84145; 84439; 84443; 84484; 85025; 85610; 85652; 85730; 86140; 86592; 87040; 87389; 87449; 92610-GN; 92611-GN; 93005; 93880; 94640; 95816; 96374; 96375; 97116-GP; 97161-GP; 99291; A9270-GY; C8929; G8978-CK-GP; G8979-CJ-GP; G8996-CJ-GN; G8996-CN-GN; G8997-CJ-GN; G8997-CN-GN; G8998-CJ-GN; G8998-CN-GN; J0360; J0456; J1200; J2920; J3486; Q9957